=== PATIENT | female | born 1960 | race Caucasian/White ===

== ENCOUNTER → 2016-07-07 | Outpatient (CLI) | payer OTHER ==
--- NOTE | 2016-07-07 15:26 | US ---
EXAMINATION TYPE: US kidneys/renal and bladder DATE OF EXAM: 07/07/2016 3:10 PM COMPARISON: No previous CLINICAL HISTORY: N20.0 KIDNEY STONE. History of kidney stones, hematuria, N/V EXAM MEASUREMENTS: Right Kidney: 10.3 x 6.5 x 6.0 cm Left Kidney: 10.5 x 5.7 x 5.9 cm Post Void Residual Volume: 10.5 mL Findings: Right Kidney: multiple tiny echogenic foci throughout with largest measuring 0.3cm mid pole Left Kidney: hydronephrosis with 1.3cm echogenic focus inferior pole Bladder: 3.2 x 2.0 x 2.8cm complex area superior and to the left of bladder Bilateral Jets seen: left jet not seen Normal Post Void Residual: yes IMPRESSION: 1. Bilateral nephrolithiasis. 2. Left-sided hydronephrosis moderate in degree. 3. Complex cystic area adjacent to the urinary bladder is of uncertain etiology. Consider CT correlat ion.
--- NOTE | 2016-07-07 15:43 | XR ---
EXAMINATION TYPE: XR KUB DATE OF EXAM: 07/07/2016 3:26 PM COMPARISON: Ultrasound 07/07/2009 HISTORY: Bilateral renal stones TECHNIQUE: One view abdominal series FINDINGS: Renal outlines are limited. Overlying bowel gas noted. Extensive retained fecal debris. Right kidney: There are approximately 5 calcifications overlying the right kidney the largest measuri ng approximately 3 mm. Left kidney: There is a 1.3 cm calcification in the region of the left UPJ. Pelvis: Nonspecific tiny calcification seen. Arthropathy hips and degenerative change of the spine. S urgical clips in the gallbladder fossa. IMPRESSION: 1. Bilateral nephrolithiasis.
== END | disposition home or self-care (01) ==
LOC: RADUSWWP 12:49
PROVIDERS: ATTEND Internal Medicine
DX: N20.0 Calculus of kidney (principal)
CPT/HCPCS: 74000; 76770

== ENCOUNTER → 2016-07-14 | Outpatient (CLI) | payer OTHER ==
[2016-07-14 14:39] LABS: Basophils # (A) 0.1 k/uL (0-0.2); Basophils % (A) 1 %; CH 29.1; CHCM 32.7; Eosinophils # (A) 0.1 k/uL (0-0.7); Eosinophils % (A) 1 %; HCT 38.3 % (34.0-46.0); HDW 2.99; HGB 11.9 gm/dL (11.4-16.0); Luc # (Auto) 0.28; Luc % (Auto) 3; Lymphocytes # (A) 2.4 k/uL (1.0-4.8); Lymphocytes % (A) 25 %; MCH 27.8 pg (25.0-35.0); MCHC 31.2 g/dL (31.0-37.0); MCV 89.3 fL (80.0-100.0); Mean Platelet Volume 7.8; Monocytes # (A) 0.4 k/uL (0-1.0); Monocytes % (A) 4 %; Neutrophils # (A) 6.3 k/uL (1.3-7.7); Neutrophils % (A) 67 %; RBC 4.28 m/uL (3.80-5.40); RDW 14.6 % (11.5-15.5); WBC 9.5 k/uL (3.8-10.6)
[2016-07-14 14:44] LABS: Anion Gap 10 mmol/L; Blood Urea Nitrogen 19 mg/dL (7-17); Calcium 11.4 mg/dL (8.4-10.2); Carbon Dioxide 27 mmol/L (22-30); Chloride 103 mmol/L (98-107); Glucose 101 mg/dL (74-99); Non-African American GFR(MDRD) >60 (>60 ml/min/1.73 sqM); Potassium 4.4 mmol/L (3.5-5.1); Sodium 140 mmol/L (137-145)
== END | disposition home or self-care (01) ==
LOC: LABPAT 14:22
PROVIDERS: ATTEND Physician Assistant
DX: Z01.812 Encounter for preprocedural laboratory examination (principal); R35.0 Frequency of micturition; K57.30 Diverticulosis of large intestine without perforation or abscess without bleeding; N20.1 Calculus of ureter
CPT/HCPCS: 80048; 85025; 87086

== ENCOUNTER 2016-07-21 09:34 | Day surgery (SDC) | payer OTHER ==
[2016-07-16 15:35] VITALS: BMI 21.7
[~2016-07-21 09:34] MED LIST: DEXAMETHASONE SOD PHOSPHATE 10 MG/ML 1 ML VIAL IV ONE; HYDROmorphone 1 MG/ML 1 ML SYRINGE IVP PRN; LIDOCAINE 1% 20 ML VIAL (10MG/ML) FOR IV START INTRADERMA PRN; ONDANSETRON 4 MG/2 ML VIAL IVP ONE; Pre Op ABX Message 1 EACH MISC MISCELLANE ONE; SCOPOLAMINE 1.5MG/72HR PATCH TRANSDERM ONE
--- NOTE | 2016-07-21 09:37 | XR ---
EXAMINATION TYPE: XR KUB DATE OF EXAM: 07/21/2016 9:27 AM COMPARISON: 07/07/2016 HISTORY: Pain TECHNIQUE: One view abdominal series FINDINGS: The osseous structures are intact. The bowel gas pattern is nonspecific. Lung bases are clear. Right kidney: There are approximately 5 calcifications overlying the right kidney the largest measuri ng approximately 3 mm. Left kidney: There is a 1.3 cm calcification in the region of the left UPJ. Pelvis: Nonspecific tiny calcification seen. Arthropathy hips and degenerative change of the spine. Surgical clips in the gall bladder fossa. IMPRESSION: 1. Bilateral nephrolithiasis.
[2016-07-21 09:57] VITALS: TEMP 98.1
[2016-07-21] MEDS: LACTATED RINGERS 1,000 ML IV SCH ×2 (09:57→09:58)
[2016-07-21] MEDS ORDERED: MIDAZOLAM 2 MG/2 ML VIAL ONE (09:58)
[2016-07-21] MEDS ORDERED: fentaNYL (PF) 50 MCG/ML 2 ML AMP ONE (09:58)
[2016-07-21] MEDS ORDERED: PROPOFOL 10 MG/ML 20 ML VIAL IV ONE (09:58)
[2016-07-21] MEDS ORDERED: FUROSEMIDE 10 MG/ML 2 ML VIAL ONE (09:58)
[2016-07-21] MEDS ORDERED: LIDOCAINE 1% INJ 10MG/ML (20 ML MDV) ONE (09:58)
[2016-07-21 10:43] VITALS: BP 131/68
[2016-07-21 11:05] VITALS: PULSE 69; RESP 18
--- NOTE | 2016-07-21 11:17 | P.OP ---
Date of Procedure: 07/21/16 Preoperative Diagnosis: Left UPJ stone Postoperative Diagnosis: Same Procedure(s) Performed: Extracorporeal shockwave lithotripsy 2500 shocks at energy level IV Anesthesia: MAC Surgeon: Davion Holt Pathology: none sent Condition: stable Disposition: PACU Indications for Procedure: Patient is a 56-year-old female with a 15 mm UPJ stone that failed shockwave lithotripsy she comes for repeat Description of Procedure: Patient is brought to the operating suite and placed on the lithotripsy table in supine position. The stone was seen in 2 weeks of fluoroscopy. A total 2500 shocks at energy level IV administered. Stone does appear to fracture however does not much. 10 mg of Lasix given. At the end of the procedure the patient's awake and returned recovery room good condition. She tolerated procedure well be discharged home upon recovery.
== END 2016-07-21 11:29 | disposition home or self-care (01) ==
LOC: ORWHC2ENDO 09:34
PROVIDERS: ATTEND Urology
DX: N20.1 Calculus of ureter (principal); N20.0 Calculus of kidney; F17.200 Nicotine dependence, unspecified, uncomplicated; I10 Essential (primary) hypertension; F41.9 Anxiety disorder, unspecified; E78.5 Hyperlipidemia, unspecified; Z88.2 Allergy status to sulfonamides; Z79.2 Long term (current) use of antibiotics; Z79.899 Other long term (current) drug therapy
CPT/HCPCS: 74000; 50590; J2250; J1940; J2001; J3010; J2704

== ENCOUNTER → 2016-07-25 | Outpatient (CLI) | payer OTHER ==
--- NOTE | 2016-07-25 14:43 | XR ---
EXAMINATION TYPE: XR KUB DATE OF EXAM ORDERED: 07/25/2016 2:37 PM HISTORY: N00.1 Left ureteral calculus. COMPARISON: Previous study dated 07/21/2016. FINDINGS: The abdominal gas pattern is normal. There is no evidence of obstruction or free air. Ther e is a 9.1 mm calculus overlying the region of the left UPJ, unchanged from previous. There is an irr egular, 7.5 mm calculus overlying the lower pole of the left kidney. The patient's right-sided calcifications are not visualized on today's examination. There is a 3.3 mm calcification lying immediately adjacent to the pedicle at L5 on the right There are phleboliths within the pelvis. IMPRESSION: LEFT-SIDED NEPHROLITHIASIS.
== END ==
LOC: RADXRMAIN 14:26
PROVIDERS: ATTEND Urology
DX: N20.0 Calculus of kidney (principal)
CPT/HCPCS: 74000

== ENCOUNTER → 2016-11-10 | Outpatient (CLI) | payer OTHER ==
--- NOTE | 2016-11-10 15:23 | MR ---
EXAMINATION TYPE: MR lumbar spine wo con DATE OF EXAM: 11/10/2016 COMPARISON: NONE HISTORY: Low back pain per order. Long time back pain into right buttocks per patient. TECHNIQUE: Multiplanar, multisequence imaging of the lumbar spine is performed without IV contrast. FINDINGS: Sagittal images of the lumbar spine show vertebral body heights and alignment to appear sat isfactory. There is multilevel disc desiccation, mild disc space narrowing, and small posterior disc herniation seen on sagittal images with relative sparing of L1-L2 level. Increased signal posteriorl y consistent with annular tear L5-S1 level is noted. The conus medullaris is normal in position and s ignal ending at mid L1 level. The bone marrow signal intensity is within normal limits. Mild multile eduardo anterior spurring is present. Axial images show the T12-L1 and L1-L2 levels to appear within normal limits. Axial images at L2-L3 level show mild broad disc bulge with slightly more prominent left lateral disc protrusion component causing mild left-sided anterior inferior neural foraminal narrowing and minima l effacement of anterior thecal sac. Right-sided neural foramen is patent. Axial images at L3-L4 level show broad disc bulge mildly effacing anterior thecal sac with asymmetric mild to moderate left-sided neural foraminal narrowing due to focal left disc protrusion on axial im age 15. Right-sided neural foramen is patent. Mild facet arthropathy is present bilaterally at this l evel. Axial images at L4-L5 level show moderate facet degenerative changes bilaterally. There is broad-base d posterior disc protrusion mildly effacing anterior thecal sac. There is mild bilateral anterior inf erior neural foraminal narrowing. Axial images at L5-S1 level shows central disc protrusion and mild to moderate facet arthropathy bila terally. Spinal canal is preserved and bilateral neural foramina are patent. No suspicious retroperitoneal findings are identified. IMPRESSION: Multilevel degenerative changes in the mid to lower lumbar spine as detailed above
== END | disposition home or self-care (01) ==
LOC: RADMRIMAIN 14:15
PROVIDERS: ATTEND Physician Assistant
DX: M47.816 Spondylosis without myelopathy or radiculopathy, lumbar region (principal)
CPT/HCPCS: 72148

== ENCOUNTER 2022-01-23 11:58 | Day surgery (SDC) | payer OTHER ==
--- NOTE | 2022-01-22 11:49 | P.HPIHPCON ---
History of Present Illness H&P Date: 01/22/22 Chief Complaint: left ureteral stone this is a 61-year-old female with history of a 3 mm left-sided distal stone 1 cm left-sided renal pelvis stone causing hydronephrosis. Discussed the option of left-sided ureteroscopy with holmium laser versus ESWL with her. Discussed the risk and benefit of each approach. She understood all the risk and agreed to proceed with left-sided ureteroscopy with holmium laser. Discussed the risk which includes but not limited to bleeding, infection, injury to the ureter. Consent for Procedure: I have explained the operation/procedure to the patient, including the risks, benefits, side effects, alternative therapies (including not receiving the proposed treatment or service), the likelihood of the patient achieving his/her goals, and potential recuperation problems for the procedure/sedation/analgesia, as well as any blood products, if indicated. I also explained to the patient the risks, benefits and side effects of the alternatives, as well as the risks related to not receiving the proposed procedure, care, treatment, or services. Medications and Allergies Home Medications Medication Instructions Recorded Confirmed Type Atorvastatin [Lipitor] 10 mg PO HS 07/16/16 07/21/16 History Metoprolol Succinate (ER) [Toprol 100 mg PO HS 07/16/16 07/21/16 History Xl] Penicillin V Potassium [Pen Vee K] 500 mg PO QID 07/16/16 07/21/16 History amLODIPine [Norvasc] 10 mg PO QAM 07/16/16 07/21/16 History HYDROcodone/APAP 5-325MG [Webb 1 tab PO Q4HR PRN #20 tab 07/21/16 Rx 5-325] Allergies Allergy/AdvReac Type Severity Reaction Status Date / Time sulfamethoxazole Allergy Rash/Hives Verified 07/21/16 09:49 [From Bactrim] trimethoprim [From Bactrim] Allergy Rash/Hives Verified 07/21/16 09:49 Surgical - Exam - General no distress, no pain - Eyes normal ocular movement - Respiratory normal expansion, normal respiratory effort - Abdomen Abdomen: soft, non tender Assessment and Plan Assessment: or for left-sided ureteroscopy, holmium laser lithotripsy, stone basketing and stent insertion
[~2022-01-23 11:58] MED LIST changes: -DEXAMETHASONE SOD PHOSPHATE 10 MG/ML 1 ML VIAL IV ONE; +DEXAMETHASONE SOD PHOSPHATE 4 MG/ML 1 ML VIAL IV ONE; +HYDROmorphone 0.5 MG/0.5 ML SYRINGE IVP PRN; -HYDROmorphone 1 MG/ML 1 ML SYRINGE IVP PRN; +LACTATED RINGERS 1,000 ML IV SCH; -LIDOCAINE 1% 20 ML VIAL (10MG/ML) FOR IV START INTRADERMA PRN; -Pre Op ABX Message 1 EACH MISC MISCELLANE ONE; -SCOPOLAMINE 1.5MG/72HR PATCH TRANSDERM ONE
[2022-01-23] MEDS ORDERED: LIDOCAINE 1% (10MG/ML) FOR IV START INTRADERMA ONE (12:57)
[2022-01-23] MEDS ORDERED: PHENYLEPHRINE-0.9% NACL SYG 1,000 MCG/10 ML SYRINGE ONE (13:20)
[2022-01-23] MEDS ORDERED: PROPOFOL 10 MG/ML 20 ML VIAL IV ONE (13:20)
[2022-01-23] MEDS ORDERED: fentaNYL (PF) 50 MCG/ML 2 ML AMP ONE (13:20)
[2022-01-23] MEDS ORDERED: LIDOCAINE 2% INJ 20 MG/ML (2 ML VIAL) ONE (13:20)
[2022-01-23] MEDS ORDERED: MIDAZOLAM 2 MG/2 ML VIAL ONE (13:20)
--- NOTE | 2022-01-23 13:54 | XR ---
KUB HISTORY: Kidney stones Frontal KUB and 2 images Correlation to prior KUB 07/25/2016 retained fecal debris obscures detail. There is a calcification seen over the region of the left kidn ey measuring approximately 8 to 9 mm. Probable calcification overlying the right kidney also seen bertin suring 3 to 4 mm. Surgical clips are present right upper quadrant. Degenerative disc change present in the visualized s pine. Multiple calcifications in the pelvis are felt likely to be vascular. impression: Findings suggest bilateral nephrolithiasis. There are limitations, correlate for fecal st asis.
--- NOTE | 2022-01-23 14:15 | P.OP ---
Date of Procedure: 01/23/22 Preoperative Diagnosis: Left ureteral stone Postoperative Diagnosis: Same Procedure(s) Performed: Cystoscopy, left ureteroscopy, holmium laser lithotripsy, stone basketing and stent insertion Implants: 6-American by 26 cm stent in the left ureter or left on a string Anesthesia: KAYODE Surgeon: Dylan Jimenez Estimated Blood Loss (ml): 5 Pathology: other (Left ureteral stone) Condition: stable Disposition: PACU Indications for Procedure: this is a 54-year-old female history of recurrent kidney stones. Underwent a KUB that showed evidence of an 8 mm right-sided renal pelvis stone, 6 mm left- sided lower pole stone.she is intermittently symptomatic from her stone, causing recurrent UTIs. Discussed with her the option of bilateral ureteroscopy with holmium laser to address her stone. Discussed risk which includes but not limited to bleeding, infection, injury to ureter. Discussed also the risk from anesthesia. She understood all the risk and agreed to proceed Operative Findings: Large stone at the UPJ in the left Description of Procedure: Patient brought to the operating room, general anesthesia was induced. He was prepped and draped in sterile fashion and placed in dorsal lithotomy position. Cystoscopy fitted with a 21-American sheath was inserted per urethra, cystoscopy was performed which showed no abnormality within the bladder. Attention was then carried to the left ureteral orifice. At this time a semirigid ureteroscope was inserted through the urethra and advanced up the left ureteral orifice, I was able to advance the scope all the way up to the UPJ which showed evidence of stone at the UPJ, but no additional stones along the course of the ureter. I did not have a good angle to fragment the stone using the rigid ureteroscope at the UPJ. At this time pullback ureteroscopy was performed which showed no injury to ureter or any ureteral stone. As the ureteroscope was withdrawn, a sensor wire was advanced through. Next under fluoroscopy 1113 American access sheath was passed over the wire and into the proximal ureter. Next the flexible ureteroscope was inserted through the access sheath, and the stone was visualized at the UPJ. Using the holmium laser the stone was dusted. Sizable fragments were removed using the stone basket. Repeat renoscopy showed no evidence of any sizable fragments or injury to the kidney. On on fluoroscopy no additional radiopaque densities were visualized. Pullback ureteroscopy was performed which showed no injury to the ureter or any ureteral stone. As a ureteroscope was withdrawn, a sensor wire was advanced through. Next a ureteral stent was passed over the wire, the proximal curl was visualized on fluoroscopy and distal curl was visualized using cystoscope. The stent was left on a string and taped to the patient's left thigh. The bladder was emptied at the end of the case. Patient tolerated the procedure well and was taken to recovery in stable condition
[2022-01-23 14:31] VITALS: TEMP 97.8
[2022-01-23 14:37] VITALS: RESP 16
--- NOTE | 2022-01-23 14:42 | FL ---
Fluoroscopy HISTORY: Left ureteral calculus 7 seconds fluoroscopy time supplied to the referring clinician. 5 intraoperative C-arm images docume nt the procedure. See dictated report from urology.
[2022-01-23 15:46] VITALS: BP 117/60; PULSE 70
== END 2022-01-23 16:00 | disposition home or self-care (01) ==
LOC: OR 11:58
PROVIDERS: ATTEND Urology
DX: N20.2 Calculus of kidney with calculus of ureter (principal); I10 Essential (primary) hypertension; E78.5 Hyperlipidemia, unspecified; F17.210 Nicotine dependence, cigarettes, uncomplicated; F32.A Depression, unspecified; F41.9 Anxiety disorder, unspecified; Z79.02 Long term (current) use of antithrombotics/antiplatelets; Z79.891 Long term (current) use of opiate analgesic; Z88.2 Allergy status to sulfonamides; Z98.890 Other specified postprocedural states
CPT/HCPCS: 52356; 82365; 74018; C2625; C1758 ×4; C1894; C1769 ×3; J2250; J1100; J0690; J2405; J3010; J2370; J2704; J2001